=== PATIENT | female | born 1940 | race Two or more races ===

== ENCOUNTER → 2017-11-15 | Outpatient (CLI) | payer MEDICARE ==
[~2017-11-15] MED LIST: ALBU2.5V36 INH; AMLO-96 PO; BENZ200C15 PO; CEFU250T11 PO; CELE-1 PO; CHOL200022 PO; CIP500 PO; CYCL10TA29 PO; DICL100G39 TOP; DOC100 PO; ENAL20TA99 PO; ESTR42.5 VG; ESTR42.59 VG; FLU150 PO; FLU45SYR17 IM; HYD10 PO; HYDR20TA17 PO; LEVO50TA80 PO; LEVO50TA86 PO; LEVO750T44 PO; LOR5 PO; LOR5/325 PO; OMEP-125 PO; OMEP-218 PO; PHENA200 PO; PNEU0.5D3 IM; PRED20TA6 PO; SIMV-42 PO; SIMV-49 PO; TOLT4CAP13 PO; TRIA-20 PO; TRIA15OI20 TP
--- NOTE | 2017-11-15 12:11 | RADIOLOGY IMAGING REPORT ---
[place] [facility] [place] NAME: Shobha Gallo : 1940 MR: [id number] V: [id number] EXAM DATE: ORDERING PHYSICIAN: JANAY OAKES TECHNOLOGIST: Location: [facility] [place] Patient: Shobha Gallo : 1940 Visit/Account:[id number] Date of Sevice: 11/15/2017 Exam type: CHEST PA AND LAT History: Wheezing Comparison: June 24, 2015. Findings: There is mild thickening along the lateral aspect of the inferior left thorax. This appears similar to the prior study. There is a vague area of increased density in the medial right lung base which m ay represent an area of atelectasis versus developing infiltrate or superimposed shadow. There is no evidence of pleural effusions or overt pulmonary edema. Cardiac silhouette is mildly enlarged. The re is moderate ectasia thoracic aorta. Left shoulder arthroplasty is noted IMPRESSION: 1. Mild chronic thickening along the lateral aspect of the inferior left thorax Vague area of increased density medial right lung base which may represent an area of atelectasis zainab everardo developing infiltrate or superimposed shadow Mild cardiomegaly Report Dictated By: Tammie Luciano MD at 11/15/2017 12:04 PM Report E-Signed By: Tammie Luciano MD at 11/15/2017 12:06 PM WSN:[email or web address]
== END ==
LOC: RAD 11:14
PROVIDERS: ATTEND Nurse Practitioner Primary Care
DX: I51.7 Cardiomegaly (principal); R91.8 Other nonspecific abnormal finding of lung field
CPT/HCPCS: 71046; 87631

== ENCOUNTER → 2017-12-22 | Outpatient (CLI) | payer MEDICARE ==
[~2017-12-22] MED LIST changes: +LEVO25TA61 PO
[2017-12-22 08:34] LABS: PLATELET COUNT, AUTOMATED 212 K/uL (150-450)
== END ==
LOC: LAB 08:03
PROVIDERS: ATTEND Internal Medicine
DX: I10 Essential (primary) hypertension (principal); E78.5 Hyperlipidemia, unspecified; E03.9 Hypothyroidism, unspecified; M85.80 Other specified disorders of bone density and structure, unspecified site
CPT/HCPCS: 36415; 82040; 82247; 82306; 82310; 82374; 82435; 82465; 82565; 82947; 83718; 84075; 84132; 84155; 84295; 84436; 84443; 84450; 84460; 84478; 84520; 85007; 85027

== ENCOUNTER → 2018-03-30 | Outpatient (CLI) | payer MEDICARE ==
[~2018-03-30] MED LIST changes: +NITR-105 PO; +PHEN200T32 PO
== END ==
LOC: LAB 09:08
PROVIDERS: ATTEND Nurse Practitioner Primary Care
DX: R39.9 Unspecified symptoms and signs involving the genitourinary system (principal); B96.89 Other specified bacterial agents as the cause of diseases classified elsewhere
CPT/HCPCS: 81001; 87077; 87088; 87186

== ENCOUNTER → 2018-07-13 | Outpatient (CLI) | payer MEDICARE ==
[~2018-07-13] MED LIST changes: +AMLO-111 PO; -AMLO-96 PO; +CHOL200018 PO; -CHOL200022 PO; +FLU180SY11 IM
== END ==
LOC: LAB 08:53
PROVIDERS: ATTEND Internal Medicine
DX: E78.00 Pure hypercholesterolemia, unspecified (principal); E03.9 Hypothyroidism, unspecified; I10 Essential (primary) hypertension
CPT/HCPCS: 36415; 82040; 82247; 82310; 82374; 82435; 82465; 82565; 82947; 83718; 84075; 84132; 84155; 84295; 84443; 84450; 84460; 84478; 84520

== ENCOUNTER → 2018-10-22 | Outpatient (CLI) | payer MEDICARE ==
[~2018-10-22] MED LIST changes: -AMLO-111 PO; +AMLO-125 PO; -HYDR20TA17 PO; +HYDR20TA8 PO; +SULF-198 PO
== END ==
LOC: LAB 15:51
PROVIDERS: ATTEND Nurse Practitioner Primary Care
DX: N39.0 Urinary tract infection, site not specified (principal); B96.89 Other specified bacterial agents as the cause of diseases classified elsewhere
CPT/HCPCS: 87077; 87088; 87186

== ENCOUNTER → 2018-11-07 | Outpatient (CLI) | payer MEDICARE | LOC: LAB 10:16 | PROVIDERS: ATTEND Internal Medicine | DX: N30.90 Cystitis, unspecified without hematuria (principal) | CPT/HCPCS: 81001 ==

== ENCOUNTER → 2018-12-26 | Outpatient (CLI) | payer MEDICARE ==
[2018-12-26 14:39] LABS: PLATELET COUNT, AUTOMATED 242 K/uL (150-450)
== END ==
LOC: LAB 14:14
PROVIDERS: ATTEND Internal Medicine
DX: E03.9 Hypothyroidism, unspecified (principal); E78.00 Pure hypercholesterolemia, unspecified; E23.0 Hypopituitarism; I10 Essential (primary) hypertension; R73.09 Other abnormal glucose
CPT/HCPCS: 36415; 81001; 82040; 82247; 82310; 82374; 82435; 82465; 82565; 82947; 83036; 83718; 84075; 84132; 84155; 84295; 84439; 84443; 84450; 84460; 84478; 84520; 85025

== ENCOUNTER → 2018-12-31 | Outpatient (CLI) | payer MEDICARE ==
--- NOTE | 2018-12-31 11:45 | RADIOLOGY IMAGING REPORT ---
FACILITY: [facility] PATIENT NAME: Shobha Gallo : 1940 MR: [id number] V: [id number] EXAM DATE: ORDERING PHYSICIAN: UMA JURADO TECHNOLOGIST: Location: [facility] [place] Patient: Shobha Gallo : 1940 Visit/Account:[id number] Date of Sevice: 12/31/2018 DEXA Scan HISTORY: Screening for osteoporosis. COMPARISON: 04/29/2003 and 03/27/2009. LUMBAR SPINE: The bone mineral density (BMD) measured from L1-L4 correlates with a Z-score of +0.2 and a T-score of -1.8 which is compatible with osteopenia as defined by the World Health Organization. The correspon ding risk of fracture in the lumbar spine is increased 3-4 times compared with a young adult referenc e population. This value has decreased by 8.9 % since the prior study. More than 5% change is consi dered significant. HIP: Bone mineral density (BMD) measured in the left total hip region correlates with a Z-score of +0.4 an d a T-score of -1.7 which is compatible with osteopenia as defined by the World Health Organization. The corresponding risk of fracture in the hip is increased 3-4 times compared with a young adult ref erence population. This value in the total hip has decreased by 12.8 % since the prior study. More t mosley 5% change is considered significant. Bone mineral density (BMD) measured in the left Femoral Neck region measures 0.810 g/cm2. IMPRESSION: 1. Lumbar spine: Compatible with osteopenia. There has been significant decrease in the bone land leasing examiner al density since the previous exam. 2. Left Femoral Neck: Compatible with osteopenia. There has been significant decrease in the bone mineral density since the previous exam. 3. Left Femoral Neck: Bone Mineral Density is 0.810 g/cm2 The next DEXA scan of this patient should include the following sites: L1-L4 and left hip. FRAX? WHO Fracture Risk Assessment Tool link: <http://www.shef.ac.uk/FRAX/tool.jsp?locationValue=9> PLEASE NOTE: 1) The World Health Organization defines low BMD as follows: T-score Normal > -1 Osteopenia < -1 and > -2.5 Osteoporosis < -2.5 without fractures Established osteoporosis < -2.5 with fractures 2) In general, you may wish to consider: Diagnosis Treatment Follow-up DEXA Normal BMD Prevention 2-3 years Osteopenia Prevention/therapy 1-2 years Osteoporosis Therapy Yearly 3) Fracture risk estimated from the T-score is more accurate for vertebral fractures (often spontane ous) than for hip fractures. Report Dictated By: Do Scott MD at 12/31/2018 11:37 AM Report E-Signed By: Do Scott MD at 12/31/2018 11:41 AM WSN:[email or web address]
== END ==
LOC: RAD 00:20
PROVIDERS: ATTEND Internal Medicine
DX: M85.80 Other specified disorders of bone density and structure, unspecified site (principal)
CPT/HCPCS: 77080

== ENCOUNTER 2019-02-15 00:08 | Day surgery (SDC) | payer MEDICARE ==
[~2019-02-15] VITALS: Ht 149.9 cm; Wt 59.9 kg
[2019-02-15] MEDS ORDERED: PROPOFOL EMUL(*) 10MG/ML 20 ML 40 ML ONE (06:25)
[2019-02-15 06:30] VITALS: BP 142/71
[2019-02-15] MEDS ORDERED: NORMOSOL R SOLN(*) 1000 ML BAG 1,000 ML IV PRN (07:20)
[2019-02-15] MEDS ORDERED: LIDOCAINE/SOD BICARB 8.4% SYR ID ONE (07:20)
[2019-02-15 08:30] VITALS: BP 113/60
--- NOTE | 2019-02-15 08:32 | NUR ---
RN INTO ROOM TO CHECK ON PT. AWAKE AND ORIENTED. OFFERED PO INTAKE. GIVEN PUDDING, COFFEE, AND CRACKERS PER REQUEST. PLACED ON RA.
--- NOTE | 2019-02-15 08:36 | Short(Outpt) Discharge Summary ---
Discharge Summary Reason for Hosp/Final Diag: (1) Encounter for screening colonoscopy Hospital Course & Plan: pt presented for colonoscopy. she tolerated the procedure well. she will be discharged home when criteria met. Departure Discharge to: Home Discharge Instructions Home Meds Active Scripts Amlodipine Besylate (AMLODIPINE BESYLATE) 5 Mg Tablet, 1 TAB PO QDAY, #90 TAB 2 Refills Prov:UMA JURADO MD 02/14/19 Enalapril Maleate (ENALAPRIL MALEATE) 20 Mg Tablet, 1 TAB PO QDAY, #90 TAB 2 Refills Prov:UMA JURADO MD 02/14/19 Levothyroxine Sodium (LEVOTHYROXINE SODIUM) 50 Mcg Tablet, 50 MCG PO QDAY, #90 TAB 3 Refills Prov:UMA JURADO MD 02/05/19 Hydrocortisone (HYDROCORTISONE) 20 Mg Tablet, 1 TAB PO QDAY, #90 TAB 1 Refill Prov:UMA JURADO MD 12/26/18 Simvastatin (SIMVASTATIN) 20 Mg Tablet, 1 TAB PO HS, #90 TAB 1 Refill Prov:JAYDEN LOWRY MD 11/07/18 Omeprazole (OMEPRAZOLE) 20 Mg Capsule.dr, 1 CAP PO QDAY, #90 CAP 1 Refill Prov:JAYDEN LOWRY MD 03/02/16 Reported Medications Cholecalciferol (Vitamin D3) (VITAMIN D) 2,000 Unit Tablet, 1 TAB PO QDAY, CAPSULE 09/08/16 Diet: Regular Activity: As Tolerated Special Instructions: repeat colonoscopy ROSAMARIA Vaughn February 15, 2019 08:36
[2019-02-15 09:01] VITALS: BP 137/89
[2019-02-15 09:05] VITALS: BP 130/68
== END 2019-02-15 09:12 | disposition home or self-care (01) ==
LOC: OR 00:08
PROVIDERS: ATTEND Surgery
DX: Z12.11 Encounter for screening for malignant neoplasm of colon (principal)
CPT/HCPCS: 00812; G0121; J2704